=== PATIENT | female | born 1995 | race American Indian/Alaskan Native ===

== ENCOUNTER 2017-01-30 22:51 | Emergency (ER) | payer SELFPAY ==
[2017-01-30 23:27] VITALS: BP 119/88
--- NOTE | 2017-01-30 23:47 | XRay Report ---
FINAL REPORT PROCEDURE: XR FINGER(S) 2 RT TECHNIQUE: RIGHT finger radiographs, including AP, lateral, and oblique views. HISTORY: Right thumb swollen and red COMPARISON: No prior studies are available for comparison. FINDINGS: Fracture (s) and/or Dislocation(s): None . Alignment: Normal. Joint space(s): Normal . Soft tissues: Normal . Bone mineralization: Normal . Foreign bodies: None . IMPRESSION: Normal Examination
[2017-01-31] MEDS ORDERED: TYLENOL PO ONE (00:54)
--- NOTE | 2017-01-31 04:09 | Emergency Department Report ---
ED Upper Extremity Inj HPI - General Chief Complaint: Extremity Injury, Upper Stated Complaint: R HAND THUMB PAIN/SWELLING Time Seen by Provider: 01/31/17 03:22 Source: patient Mode of arrival: Ambulatory Limitations: No Limitations - History of Present Illness Initial Comments: This is a 21-year-old female that presents with right thumb pain and swelling with redness. Patient describes pain as aching/throbbing with the quality of 9/ 10 pain scale. Patient denies any trauma to the finger. Patient stated has got her nails done prior to the symptoms. Patient denies any fever, chills, numbness or tingling, chest pain, shortness of breath, pus, drainage, boil, headache or nausea or vomiting. Patient denies any chance of . Patient denies any drug allergies. MD Complaint: Injury to:: right, finger (thumb) -: Gradual, days(s) (2) Other Extremity Injury: Fingers: Right (thumb) Severity scale (0 -10): 9 Associated Symptoms: denies other symptoms. denies: weakness, numbness, neck pain, suspects foreign body, nausea/vomiting, heard/felt popping sensat - Related Data Previous Rx's Medication Instructions Recorded Last Taken Type Amoxicillin [Amoxicillin TAB] 875 mg PO BID #20 tablet 12/31/13 Unknown Rx HYDROcodone/APAP 5-325 [[place] 1 each PO Q6HR PRN #10 tablet 12/31/13 Unknown Rx 5/325 mg] Neomy/Polymyx B/Hc (Otic) Soln 4 drops OT TID #10 ml 12/31/13 Unknown Rx [Cortisporin (Otic) Soln] Cephalexin [Keflex] 500 mg PO Q8HR 7 Days 01/31/17 Unknown Rx Allergies Allergy/AdvReac Type Severity Reaction Status Date / Time No Known Allergies Allergy Verified 12/31/13 03:13 ED Review of Systems ROS: Stated complaint: R HAND THUMB PAIN/SWELLING Other details as noted in HPI Constitutional: denies: chills, fever Eyes: denies: eye pain, eye discharge, vision change ENT: denies: ear pain, throat pain Respiratory: denies: cough, shortness of breath, wheezing Cardiovascular: denies: chest pain, palpitations Endocrine: no symptoms reported Gastrointestinal: denies: abdominal pain, nausea, diarrhea Genitourinary: denies: urgency, dysuria, discharge Musculoskeletal: denies: back pain, joint swelling, arthralgia Skin: denies: rash, lesions Neurological: denies: headache, weakness, paresthesias Psychiatric: denies: anxiety, depression Hematological/Lymphatic: denies: easy bleeding, easy bruising ED Past Medical Hx - Past Medical History Previous Medical History?: No - Social History Smoking Status: Unknown if ever smoked Substance Use Type: None - Medications Home Medications: Home Medications Medication Instructions Recorded Confirmed Last Taken Type Amoxicillin [Amoxicillin TAB] 875 mg PO BID #20 tablet 12/31/13 Unknown Rx HYDROcodone/APAP 5-325 [[place] 1 each PO Q6HR PRN #10 tablet 12/31/13 Unknown Rx 5/325 mg] Neomy/Polymyx B/Hc (Otic) Soln 4 drops OT TID #10 ml 12/31/13 Unknown Rx [Cortisporin (Otic) Soln] Cephalexin [Keflex] 500 mg PO Q8HR 7 Days 01/31/17 Unknown Rx ED Physical Exam - General Limitations: No Limitations General appearance: alert, in no apparent distress - Head Head exam: Present: atraumatic, normocephalic - Eye Eye exam: Present: normal appearance, PERRL, EOMI Pupils: Present: normal accommodation - ENT ENT exam: Present: normal exam, normal orophraynx, mucous membranes moist, TM's normal bilaterally, normal external ear exam - Neck Neck exam: Present: normal inspection, full ROM. Absent: tenderness, meningismus, lymphadenopathy, thyromegaly - Respiratory Respiratory exam: Present: normal lung sounds bilaterally. Absent: respiratory distress, wheezes, rales, rhonchi, stridor, chest wall tenderness, accessory muscle use, decreased breath sounds, prolonged expiratory - Cardiovascular Cardiovascular Exam: Present: regular rate, normal rhythm, normal heart sounds. Absent: bradycardia, tachycardia, irregular rhythm, systolic murmur, diastolic murmur, rubs, gallop - GI/Abdominal GI/Abdominal exam: Present: soft, normal bowel sounds. Absent: distended, tenderness, guarding, rebound, rigid - Extremities Exam Extremities exam: Present: normal inspection, full ROM, normal capillary refill. Absent: tenderness, pedal edema, joint swelling, calf tenderness - Expanded Upper Extremity Exam Right General: Present: normal inspection Shoulder Exam: Present: normal inspection, full ROM. Absent: tenderness, swelling Upper Arm exam: Present: normal inspection, full ROM. Absent: tenderness, swelling Elbow exam: Present: normal inspection, full ROM. Absent: tenderness, swelling , abrasion, laceration Forearm Wrist exam: Present: normal inspection, full ROM. Absent: tenderness, swelling, abrasion Hand Wrist exam: Present: normal inspection, full ROM, tenderness, swelling, erythema. Absent: abrasion, laceration, ecchymosis, deformity, crepidus, dislocation, amputation, nail avulsion, subungual hematoma Hand L/R Back: 1 - swelling, pain, erythema Neuro motor exam: Present: wrist extension intact, fingers 2-5 abduction intact Neurosensory exam: Present: 2-point discrimination, radial nerve intact, ulnar nerve intact, median nerve intact Vascular: Present: vascular compromise, normal capillary refill - Back Exam Back exam: Present: normal inspection, full ROM. Absent: tenderness, CVA tenderness (R), CVA tenderness (L), muscle spasm, paraspinal tenderness, vertebral tenderness, rash noted - Neurological Exam Neurological exam: Present: alert, oriented X3, CN II-XII intact, normal gait - Psychiatric Psychiatric exam: Present: normal affect, normal mood - Skin Skin exam: Present: warm, dry, intact, normal color. Absent: rash - Other Other exam information: Erythema, swelling, tender to touch to the right thumb cuticle area. No pus, drainage, or boil present. ED Course Vital Signs 01/30/17 23:23 Temperature 98.3 F Pulse Rate 74 Respiratory 20 Rate Blood Pressure 119/88 O2 Sat by Pulse 98 Oximetry ED Medical Decision Making - Medical Decision Making Ed course: This is a 21-year-old female that presents with right thumb paronychia 1-an x-ray of the right thumb has been obtained. Dictated by Dr. Long. Impression; normal exam. 2- After my physical exam, patient received Keflex 500mg TID at the time of d/ c. 3- Pt was instructed to finish full course of antibiotics as prescribed 4- Patient was also instructed to f/u with her PCP in 3-5 days or if symptoms worsen to report back to the ER. 5- at time time of discharge, the patient does not seem toxic or ill in appearance. No acute signs of distress noted. Patient agrees to discharge treatment plan of care. No further questions noted by the patient. Critical care attestation.: If time is entered above; I have spent that time in minutes in the direct care of this critically ill patient, excluding procedure time. ED Disposition Clinical Impression: Paronychia Qualifiers: Laterality: right Qualified Code(s): L03.011 - Cellulitis of right finger Disposition: DISCHARGED TO HOME OR SELFCARE Is pt being admited?: No Does the pt Need Aspirin: No Condition: Stable Instructions: Paronychia (ED) Additional Instructions: Follow-up with her primary care doctor in 3-5 days or if symptoms worsen report back to emergency room. Physical course of antibiotics as prescribed. Prescriptions: Cephalexin [Keflex] 500 mg PO Q8HR 7 Days Referrals: PRIMARY MD FREIDA [Primary Care Provider] - 3-5 Days [facility] [Outside] - 3-5 Days [facility] [Outside] - 3-5 Days MAX LEVY JR, MD [Staff Physician] - 3-5 Days Forms: Work/School Release Form(ED)
[2017-01-31] MEDS ORDERED: MOTRIN PO ONE (04:25)
== END 2017-01-31 04:45 | disposition home or self-care (01) ==
LOC: ED 22:51
DX: L03.011 Cellulitis of right finger (principal)
CPT/HCPCS: 99283